=== PATIENT | male | born 1990 | race African-American/Black ===

== ENCOUNTER 2016-03-28 12:55 | Emergency (ER) | payer SELFPAY ==
--- NOTE | 2016-03-28 13:39 | ER Document Report ---
ED Medical Screen (RME) - General Stated Complaint: DISCHARGE Mode of Arrival: Ambulatory Information source: Patient Notes: 25-year-old male presents to the department complaining of penile discharge over the last 2 days. Reports had similar symptoms when he was diagnosed and treated for Gonorrhea approximately one month ago but states has had intercourse since treatment and symptoms have returned. Denies fever or dysuria. TRAVEL OUTSIDE OF THE [place] IN LAST 30 DAYS: No - Related Data Allergies/Adverse Reactions: No Known Allergies Allergy (Verified 06/18/12 19:04) Past Medical History - Social History Frequency of alcohol use: None Drug Abuse: None Family history: Reviewed & Not Pertinent Renal/ Medical History: Denies: Hx Peritoneal Dialysis - Immunizations Immunizations up to date: Yes Hx Diphtheria, Pertussis, Tetanus Vaccination: No - unk Physical Exam - Vital signs Vitals: Temp Pulse Resp BP Pulse Ox 97.9 F 51 L 16 112/58 L 97 03/28/16 13:16 03/28/16 13:16 03/28/16 13:16 03/28/16 13:16 03/28/16 13:16 - General General appearance: Appears well, Alert In distress: None Course - Vital Signs Vital signs: Temp Pulse Resp BP Pulse Ox 97.9 F 51 L 16 112/58 L 97 03/28/16 13:16 03/28/16 13:16 03/28/16 13:16 03/28/16 13:16 03/28/16 13:16
--- NOTE | 2016-03-28 14:37 | ER Document Report ---
ED GI/ - General Chief Complaint: Penile Discharge Stated Complaint: DISCHARGE Mode of Arrival: Ambulatory Information source: Patient TRAVEL OUTSIDE OF THE [place] IN LAST 30 DAYS: No - HPI Patient complains to provider of: Other - URETHRAL DISCHARGE Onset: Yesterday Timing/Duration: Gradual Quality of pain: No pain Context: Other - RECENT STD, TREATED Sexual history: Active, Condoms. denies: Unprotected intercourse - NONE SINCE TREATMENT FOR STD Associated symptoms: None. denies: Dysuria Exacerbated by: Denies Relieved by: Denies Similar symptoms previously: Yes - 2 WKS AGO Recently seen / treated by doctor: Yes - BACILIO Langston, 2 WKS AGO - Related Data Allergies/Adverse Reactions: No Known Allergies Allergy (Verified 06/18/12 19:04) Past Medical History - General Information source: Patient - Social History Smoking Status: Current Every Day Smoker Smoking Education Provided: No Frequency of alcohol use: None Drug Abuse: None Family History: Reviewed & Not Pertinent Patient has suicidal ideation: No Patient has homicidal ideation: No - Past Medical History Cardiac Medical History: Reports: None Pulmonary Medical History: Reports: None EENT Medical History: Reports: None Neurological Medical History: Reports: None Endocrine Medical History: Reports: None. Denies: Hx Diabetes Mellitus Type 1, Hx Diabetes Mellitus Type 2 Renal/ Medical History: Denies: Hx Peritoneal Dialysis Malignancy Medical History: Reports None GI Medical History: Reports: None Musculoskeltal Medical History: Reports None Psychiatric Medical History: Reports: None Surgical Hx: Negative - Immunizations Immunizations up to date: Yes Hx Diphtheria, Pertussis, Tetanus Vaccination: No - unk Review of Systems - Review of Systems Constitutional: No symptoms reported. denies: Fever EENT: No symptoms reported Cardiovascular: No symptoms reported Respiratory: No symptoms reported Gastrointestinal: No symptoms reported Genitourinary: See HPI, Discharge. denies: Burning, Dysuria Male Genitourinary: See HPI, Penile discharge, Other - DENIES SKIN LESIONS Musculoskeletal: No symptoms reported Skin: No symptoms reported Neurological/Psychological: No symptoms reported Physical Exam - Vital signs Vitals: Temp Pulse Resp BP Pulse Ox 97.9 F 51 L 16 112/58 L 97 03/28/16 13:16 03/28/16 13:16 03/28/16 13:16 03/28/16 13:16 03/28/16 13:16 Interpretation: Normal - General General appearance: Appears well, Alert In distress: None - HEENT Head: Normocephalic Eyes: Normal Mouth/Lips: Normal Mucous membranes: Normal - Respiratory Respiratory status: No respiratory distress - Cardiovascular Rhythm: Regular - Extremities General upper extremity: Normal inspection General lower extremity: Normal inspection - Neurological Neuro grossly intact: Yes Cognition: Normal Orientation: AAOx4 - Psychological Associated symptoms: Normal affect, Normal mood - Skin Skin Temperature: Warm Skin Moisture: Dry Skin Color: Normal Skin Turgor: Elastic Course - Vital Signs Vital signs: Temp Pulse Resp BP Pulse Ox 97.9 F 51 L 16 112/58 L 97 03/28/16 13:16 03/28/16 13:16 03/28/16 13:16 03/28/16 13:16 03/28/16 13:16 - Laboratory Laboratory results interpreted by me: 03/28/16 13:39 Chlamydia DNA (PCR) DETECTED H N.gonorrhoeae DNA (PCR) DETECTED H Discharge - Discharge Clinical Impression: GC infection of lower tract, acute, Chlamydia infection Condition: Stable Disposition: HOME, SELF-CARE Instructions: Gonorrhea ([facility]), Chlamydia ([facility]), Azithromycin ([facility]), Rocephin ( [facility]) Additional Instructions: DRINK PLENTY OF FLUIDS. AVOID UNPROTECTED SEX WITH ANYONE FOR NEXT 7-10 DAYS. ADVISE RECENT SEXUAL PARTNERS TO GET EVALUATED AND TREATED FOR SEXUALLY TRANSMITTED DISEASE. ALWAYS WEAR PROTECTION (SUCH A CONDOM) DURING SEX WITH ANYONE WHO MIGHT POSSIBLY HAVE AN STD INFECTION.
[2016-03-28 15:27] LABS: CHLAM PCR DETECTED (NOT DETECT)
[2016-03-28] MEDS ORDERED: CEFTRIAXONE INJ 250 MG VIAL IM ONE (15:43)
[2016-03-28] MEDS ORDERED: AZITHROMYCIN 250 MG TABLET PO ONE (15:43)
[2016-03-28] MEDS ORDERED: LIDOCAINE 1% INJ-PF (10 MG/ML) 30 ML SDV INJ ONE (15:43)
[2016-03-28 16:04] VITALS: BP 122/75
== END 2016-03-28 16:04 | disposition home or self-care (01) ==
LOC: ER 12:55
DX: A54.00 Gonococcal infection of lower genitourinary tract, unspecified (principal); A74.9 Chlamydial infection, unspecified; F17.200 Nicotine dependence, unspecified, uncomplicated
CPT/HCPCS: 99283; 96372; 87491; 87591; J3490; J0696

== ENCOUNTER 2016-05-17 14:19 | Emergency (ER) | payer MEDICAID ==
--- NOTE | 2016-05-17 14:29 | ER Document Report ---
ED Medical Screen (RME) - General Chief Complaint: STD Exposure Stated Complaint: STD CHECK Mode of Arrival: Ambulatory Information source: Patient Notes: pt presents for possible STD, denies symptoms. Reports he just wants to be checked out. Reports he has been having unprotected sex. Reports history of STD. I have greeted and performed a rapid initial assessment of this patient. A comprehensive ED assessment and evaluation of the patient, analysis of test results and completion of the medical decision making process will be conducted by additional ED providers. TRAVEL OUTSIDE OF THE [place] IN LAST 30 DAYS: No - Related Data Allergies/Adverse Reactions: No Known Allergies Allergy (Verified 05/17/16 14:20) Past Medical History - Social History Chew tobacco use (# tins/day): No Frequency of alcohol use: Occasional Drug Abuse: None Family history: Reviewed & Not Pertinent Endocrine Medical History: Denies: Hx Diabetes Mellitus Type 1, Hx Diabetes Mellitus Type 2 Renal/ Medical History: Denies: Hx Peritoneal Dialysis - Immunizations Immunizations up to date: Yes Hx Diphtheria, Pertussis, Tetanus Vaccination: No - unk Physical Exam - Vital signs Vitals: Temp Pulse Resp BP Pulse Ox 98.2 F 85 20 143/71 H 98 05/17/16 14:21 05/17/16 14:21 05/17/16 14:21 05/17/16 14:21 05/17/16 14:21 Course - Vital Signs Vital signs: Temp Pulse Resp BP Pulse Ox 98.2 F 85 20 143/71 H 98 05/17/16 14:21 05/17/16 14:21 05/17/16 14:21 05/17/16 14:21 05/17/16 14:21
[2016-05-17] MEDS ORDERED: LIDOCAINE 1% INJ-PF (10 MG/ML) 30 ML SDV INFIL ONE (14:42)
[2016-05-17] MEDS ORDERED: METRONIDAZOLE 500 MG TABLET PO ONE (14:42)
[2016-05-17] MEDS ORDERED: CEFTRIAXONE INJ 250 MG VIAL IM ONE (14:42)
[2016-05-17] MEDS ORDERED: AZITHROMYCIN 1 GM SUSP PACKET PO ONE (14:42)
[2016-05-17] MEDS ORDERED: ONDANSETRON ODT 4 MG TAB (6 TAB/DSPK) PO PRN (14:43)
--- NOTE | 2016-05-17 14:46 | ER Document Report ---
ED General - General Chief Complaint: STD Exposure Stated Complaint: STD CHECK Mode of Arrival: Ambulatory TRAVEL OUTSIDE OF THE [place] IN LAST 30 DAYS: No - HPI Patient complains to provider of: concern for STDs Notes: Patient coming in after his girlfriend was seen earlier here in the ER and was diagnosed with gonorrhea and Chlamydia patient has been having unprotected sex and is concerned about STDs. Patient has are to provide urine. Denies fevers chills nausea vomiting sores on his penis or penile discharge. Patient denies dysuria. - Related Data Allergies/Adverse Reactions: No Known Allergies Allergy (Verified 05/17/16 14:20) Past Medical History - General Information source: Patient - Social History Smoking Status: Current Every Day Smoker Chew tobacco use (# tins/day): No Frequency of alcohol use: Occasional Drug Abuse: None Family History: Reviewed & Not Pertinent Patient has suicidal ideation: No Patient has homicidal ideation: No Endocrine Medical History: Denies: Hx Diabetes Mellitus Type 1, Hx Diabetes Mellitus Type 2 Renal/ Medical History: Denies: Hx Peritoneal Dialysis - Immunizations Immunizations up to date: Yes Hx Diphtheria, Pertussis, Tetanus Vaccination: No - unk Review of Systems - Review of Systems Constitutional: No symptoms reported EENT: No symptoms reported Cardiovascular: No symptoms reported Respiratory: No symptoms reported Gastrointestinal: No symptoms reported Genitourinary: Other - Concern for STDs Male Genitourinary: No symptoms reported Musculoskeletal: No symptoms reported Skin: No symptoms reported Hematologic/Lymphatic: No symptoms reported Neurological/Psychological: No symptoms reported -: Yes All other systems reviewed and negative Physical Exam - Vital signs Vitals: Temp Pulse Resp BP Pulse Ox 98.2 F 85 20 143/71 H 98 05/17/16 14:21 05/17/16 14:21 05/17/16 14:21 05/17/16 14:21 05/17/16 14:21 Interpretation: Normal - General General appearance: Appears well, Alert - HEENT Head: Normocephalic, Atraumatic Eyes: Normal Pupils: PERRL - Respiratory Respiratory status: No respiratory distress Chest status: Nontender Breath sounds: Normal Chest palpation: Normal - Cardiovascular Rhythm: Regular Heart sounds: Normal auscultation Murmur: No - Abdominal Inspection: Normal Distension: No distension Bowel sounds: Normal Tenderness: Nontender Organomegaly: No organomegaly - Genitourinary Tenderness: Nontender Cremasteric reflex: Normal Scrotum: Normal Notes: No lesions - Back Back: Normal, Nontender - Extremities General upper extremity: Normal inspection, Nontender, Normal color, Normal ROM , Normal temperature General lower extremity: Normal inspection, Nontender, Normal color, Normal ROM , Normal temperature, Normal weight bearing. No: Maurisio's sign - Neurological Neuro grossly intact: Yes Cognition: Normal Orientation: AAOx4 [place] Coma Scale Eye Opening: Spontaneous [place] Coma Scale Verbal: Oriented [place] Coma Scale Motor: Obeys Commands [place] Coma Scale Total: 15 Speech: Normal Motor strength normal: LUE, RUE, LLE, RLE Sensory: Normal - Psychological Associated symptoms: Normal affect, Normal mood - Skin Skin Temperature: Warm Skin Moisture: Dry Skin Color: Normal Course - Re-evaluation Re-evalutation: 05/17/16 19:11 Patient ventilation they did not want to be treated for STDs in one week for results To the patient more likely as that his partner has gonorrhea and Chlamydia he would also had gonorrhea and Chlamydia and then patient did agree for treatment patient was discharged home educated about the use of condoms - Vital Signs Vital signs: Temp Pulse Resp BP Pulse Ox 98.0 F 60 16 140/70 H 100 05/17/16 15:13 05/17/16 15:13 05/17/16 15:13 05/17/16 15:13 05/17/16 15:13 - Laboratory Laboratory results interpreted by me: 05/17/16 14:30 Chlamydia DNA (PCR) DETECTED H N.gonorrhoeae DNA (PCR) DETECTED H Discharge - Discharge Clinical Impression: gonorrhea and Chlamydia infection Condition: Good Disposition: HOME, SELF-CARE Additional Instructions: You were treated today for exposure for gonorrhea and Chlamydia and trichomonas. Please take medications as directed. Sometimes the antibiotics can cause nausea we will give you Zofran for home for the next few days. No sexual intercourse for the next 2 weeks. Every time that you have sex you need to wear a condom to prevent sexually transmitted diseases (such as gonorrhea chlamydia) and
[2016-05-17 14:54] LABS: APPEARANCE,URINE CLEAR; BILIRUBIN,URINE NEGATIVE (NEGATIVE); GLUCOSE, URINE NEGATIVE (NEGATIVE); KETONES,URINE NEGATIVE (NEGATIVE); LEUKOCYTE ESTERASE,URINE NEGATIVE (NEGATIVE); NITRITE,URINE NEGATIVE (NEGATIVE); PROTEIN,URINE NEGATIVE (NEGATIVE); URINE SPECIFIC GRAVITY 1.013; UROBILINOGEN,URINE NEGATIVE mg/dL (<2.0)
[2016-05-17 15:17] VITALS: BP 140/70
[2016-05-17 16:15] LABS: CHLAM PCR DETECTED (NOT DETECT)
== END 2016-05-17 15:17 | disposition home or self-care (01) ==
LOC: ER 14:19
DX: A54.9 Gonococcal infection, unspecified (principal); A74.9 Chlamydial infection, unspecified; F17.200 Nicotine dependence, unspecified, uncomplicated
CPT/HCPCS: 99283; 81001; 87491; 87591; J3490 ×2; Q0144; J0696

== ENCOUNTER 2016-06-29 18:58 | Emergency (ER) | payer OTHER, MEDICAID ==
--- NOTE | 2016-06-29 20:05 | ER Document Report ---
ED Hand/Wrist Injury - General Chief Complaint: Finger Injury Stated Complaint: FINGER INJURY Time seen by provider: 19:30 Mode of Arrival: Ambulatory Information source: Patient Notes: 26-year-old male presents to ED for right fifth finger injury. He states he was at work when he was moving a dresser and it started to fall he caught it around 2:30 and then his finger completely backwards. He states it is hurt ever since then.. TRAVEL OUTSIDE OF THE [place] IN LAST 30 DAYS: No - HPI Injury to: Small finger Onset: This afternoon Where: Work Timing: Still present Severity: Moderate Pain Level: 4 Context: Other - Injured finger when furniture dropped and he tried to catch it - Related Data Allergies/Adverse Reactions: No Known Allergies Allergy (Verified 06/29/16 19:04) Past Medical History - General Information source: Patient - Social History Smoking Status: Current Some Day Smoker Cigarette use (# per day): Yes - a pack per week Smoking Education Provided: Yes Frequency of alcohol use: Occasional Drug Abuse: None Occupation: moving company Lives with: Grandparent(s) Family History: Arthritis, CVA, DM, Malignancy Patient has suicidal ideation: No Patient has homicidal ideation: No - Past Medical History Cardiac Medical History: Reports: Hx Hypercholesterolemia Pulmonary Medical History: Reports: None EENT Medical History: Reports: None Neurological Medical History: Reports: None Endocrine Medical History: Reports: None Renal/ Medical History: Reports: None Malignancy Medical History: Reports None GI Medical History: Reports: None Musculoskeltal Medical History: Reports Hx Musculoskeletal Trauma Skin Medical History: Reports None Psychiatric Medical History: Reports: Hx Attention Deficit Hyperactivity Disorder, Hx Bipolar Disorder Traumatic Medical History: Reports: Hx Fractures - Today fracture of right fifth finger Infectious Medical History: Reports: None Surgical Hx: Negative Past Surgical History: Reports: None - Immunizations Immunizations up to date: Yes Hx Diphtheria, Pertussis, Tetanus Vaccination: No - unk Review of Systems - Review of Systems Constitutional: No symptoms reported EENT: No symptoms reported Cardiovascular: No symptoms reported Respiratory: No symptoms reported Gastrointestinal: No symptoms reported Genitourinary: No symptoms reported Male Genitourinary: No symptoms reported Musculoskeletal: Other - Right fifth finger and hand pain and swelling Skin: No symptoms reported Hematologic/Lymphatic: No symptoms reported Neurological/Psychological: No symptoms reported Physical Exam - Vital signs Vitals: Temp Pulse Resp BP Pulse Ox 98.4 F 71 16 134/75 H 98 06/29/16 19:07 06/29/16 19:07 06/29/16 19:07 06/29/16 19:07 06/29/16 19:07 Interpretation: Normal - General General appearance: Appears well, Alert - HEENT Head: Normocephalic, Atraumatic Eyes: Normal Pupils: PERRL - Respiratory Respiratory status: No respiratory distress Chest status: Nontender Breath sounds: Normal Chest palpation: Normal - Cardiovascular Rhythm: Regular Heart sounds: Normal auscultation Murmur: No - Abdominal Inspection: Normal Distension: No distension Bowel sounds: Normal Tenderness: Nontender Organomegaly: No organomegaly - Back Back: Normal, Nontender - Extremities General upper extremity: Normal color, Normal temperature General lower extremity: Normal inspection, Nontender, Normal color, Normal ROM , Normal temperature, Normal weight bearing. No: Maurisio's sign Hand: Tender - Right fifth finger swollen tender refuses to move., No evidence of human bite, No evidence of FB, Swelling. No: Abrasion, Deformity, Dislocation, Ecchymosis, Laceration, Nail injury, Tendon deficit - Neurological Neuro grossly intact: Yes Cognition: Normal Orientation: AAOx4 Bettye Coma Scale Eye Opening: Spontaneous [place] Coma Scale Verbal: Oriented [place] Coma Scale Motor: Obeys Commands [place] Coma Scale Total: 15 Speech: Normal Motor strength normal: LUE, RUE, LLE, RLE Sensory: Normal - Psychological Associated symptoms: Normal affect, Normal mood - Skin Skin Temperature: Warm Skin Moisture: Dry Skin Color: Normal Course - Re-evaluation Re-evalutation: 06/29/16 21:[address] guillaume for splint suggestions for a fractured proximal phalanx of the right fifth finger. He suggested a ulnar splint going to the wrist to protect the finger. This was ordered and placed on patient patient given a no code dispense pack with a Zofran dispense pack for tonight for pain and a prescription for Percocet because he states that [place] sometimes makes him sick. Patient instructed to follow-up with orthopedics tomorrow if possible. Patient instructed to keep the hand elevated above the heart and use ice on the hand - Vital Signs Vital signs: Temp Pulse Resp BP Pulse Ox 98.4 F 71 16 134/75 H 98 06/29/16 19:07 06/29/16 19:07 06/29/16 19:07 06/29/16 19:07 06/29/16 19:07 - Diagnostic Test Radiology reviewed: Image reviewed, Reports reviewed Procedures - Immobilization Right Hand Time completed: 21:37 Pre-Proc Neuro Vasc Exam: Normal Immobilizer type: Ulnar - Right pull her to include this finger to the wrist Performed by: PCT Post-Proc Neuro Vasc Exam: Normal Alignment checked and good: No - did not re-x-ray the finger as we did not reduce the fracture splint Discharge - Discharge Clinical Impression: Finger fracture, right Condition: Stable Disposition: HOME, SELF-CARE Additional Instructions: Fracture You have a fracture. The typical broken bone requires only protection and sufficient time for healing. "Setting" is necessary only if the bones are crooked or out of position. The physician will re-assess you periodically to make certain that the bone heals without complications. It's important that you follow the instructions given you. The initial treatment is immobilization, elevation of the injury, and cold packs. Not all fractures require a cast. Depending on the location and type of fracture, immobilization may consist of a splint, cast, sling, bulky dressing , or simply rest. The length of time required for healing depends on the location and type of fracture, and on the age of the patient. The treatment plan the physician has outlined for you is customized to your fracture and health condition. Call the doctor or return at once if pain becomes severe, or if severe swelling or numbness develop. SPLINT PRECAUTIONS: A splint has been placed. This will protect the area while healing begins. Your problem does NOT normally require a cast. It MUST, however, be held still! Keep the splint on ALL THE TIME until instructed to remove it by the doctor. As you begin to use the area, be careful. You shouldn't do anything which causes discomfort -- you may disturb the injury even with the splint in place. After the initial period of rest and elevation, if splint does not prevent pain when you move, come back. You may require placement of a different splint , or a cast. If there is unexpected severe pain, or numbness, discoloration, or swelling beyond the splint, you should return at once. If you feel that the splint has broken or become loose, come back. ICE & ELEVATION: Apply ice packs frequently against the painful area. Many different schedules are recommended, such as "20 minutes on, 20 minutes off" or "one hour ice, two hours rest." If you need to work, you may need to go longer between ice treatments. You should plan to have the area ice packed AT LEAST one- fourth of the time. The ice should be applied over the wrap, tape, or splint, or over a layer of cloth -- not directly against the skin. Some ice bags have a built-in cloth and can be put directly on the skin. Your injured part should be elevated as much as possible over the next 48 hours. Try to keep the injury above the level of the heart. Avoid use of the injured area. Elevation and rest will decrease the swelling. USE OF [id number] IBUPROFEN: Ibuprofen (Advil, Nuprin, Medipren, Motrin IB) is a medication for fever and pain control. In addition, it has anti- inflammatory effects which may be beneficial, especially in the treatment of injuries. It's best to take ibuprofen with food. Persons with ulcer disease or allergy to aspirin should notify their physician of this before taking ibuprofen. Ibuprofen can be given every four to six hours, for a total of four doses daily. Age Pain or fever dose Antiinflammatory dose 6-8 yr 200 mg (1 tab) 200 mg (1 tab) 9-11 yr 200 mg (1 tab) 200-400 mg (1-2 tab) 11-14 yr 200-400 mg (1-2 tab) 400 mg (2 tab) 15-adult 400 mg (2 tab) 600 mg (3 tab) ORAL NARCOTIC MEDICATION: You have been given a prescription for pain control. This medication is a narcotic. It's best taken with food, as nausea can result if taken on an empty stomach. Don't operate machinery or drive within six hours of taking this medication. Do not combine this medicine with alcohol, or with any medication which can cause sedation (such as cold tablets or sleeping pills) unless you get permission from the physician. Narcotics tend to cause constipation. If possible, drink plenty of fluids and eat a diet high in fiber and fruits. Please be aware that prescription narcotics also have the potential for abuse. People become addicted to these medications because of the general sense of wellbeing that they induce. This feeling along with a significant reduction in tension, anxiety, and aggression provides a stimulating seductive quality to these drugs. Once your pain is under control, we encourage you to discard your unused narcotics. FOLLOW-UP CARE: If you have been referred to a physician for follow-up care, call the physician s office for an appointment as you were instructed or within the next two days. If you experience worsening or a significant change in your symptoms, notify the physician immediately or return to the Emergency Department at any time for re-evaluation. Call Dr. Marshall in the morning and schedule follow-up visit for your right proximal phalanx fifth finger fracture displaced. Prescriptions: Oxycodone HCl/Acetaminophen [Percocet 5-325 mg Tablet] 1 tab PO Q6HP PRN #10 tablet PRN Reason: Forms: Elevated Blood Pressure, Return to Work Referrals: BIANCA BROWN MD [Primary Care Provider] - Follow up as needed ELLY MARSHALL DO [ACTIVE STAFF] - Follow up tomorrow
[2016-06-29] MEDS ORDERED: HYDROCODONE/ACETAMINOPHEN 5-325 MG 6 TAB/DSPK PO PRN (20:56)
[2016-06-29] MEDS ORDERED: ONDANSETRON 4 MG TAB.RAPDIS PO ONE (21:22)
[2016-06-29] MEDS ORDERED: ONDANSETRON ODT 4 MG TAB (6 TAB/DSPK) PO PRN (21:23)
[2016-06-29 21:42] VITALS: BP 121/78
== END 2016-06-29 21:37 | disposition home or self-care (01) ==
LOC: ER 18:58
PROC: 2W3CX1Z Immobilization of Right Lower Arm using Splint (ICD-10-PCS; principal; 2016-06-29)
DX: S62.616A Displaced fracture of proximal phalanx of right little finger, initial encounter for closed fracture (principal); X50.0XXA Overexertion from strenuous movement or load, initial encounter; Y93.89 Activity, other specified; Y99.0 Civilian activity done for income or pay; F17.210 Nicotine dependence, cigarettes, uncomplicated
CPT/HCPCS: 99283; 73130; 29125; S0119

== ENCOUNTER 2017-03-27 20:44 | Emergency (ER) | payer BC, MEDICAID ==
[2017-03-27 21:08] VITALS: BP 148/75
--- NOTE | 2017-03-27 22:16 | RADIOLOGY REPORT (SQ) ---
EXAM DESCRIPTION: KNEE LEFT 3 VIEWS COMPLETED DATE/TIME: 03/27/2017 9:55 pm REASON FOR STUDY: swelling, pain COMPARISON: None. NUMBER OF VIEWS: Three views. TECHNIQUE: AP, lateral, and sunrise patella radiographic images acquired of the left knee. LIMITATIONS: None. FINDINGS: MINERALIZATION: Normal. BONES: No acute fracture or dislocation. No worrisome bone lesions. JOINT: Small suprapatellar knee joint effusion SOFT TISSUES: There is blurring of the soft tissue planes along the quadriceps muscle and quadriceps tendon attachment to the patella. There may be injury at the musculotendinous junction. OTHER: No other significant finding. IMPRESSION: No acute fracture. Loss of discrete soft tissue planes within the distal left thigh on lateral view. There may be injur y at the musculotendinous junction of the quadriceps, or the quadriceps attachment to the patella. TECHNICAL DOCUMENTATION: JOB ID: [id number] [employer])- All Rights Reserved
[2017-03-27] MEDS ORDERED: IBUPROFEN 600 MG TABLET PO ONE (22:24)
--- NOTE | 2017-03-27 22:29 | ER Document Report ---
ED Extremity Problem, Lower - General Chief Complaint: Knee Pain Stated Complaint: PAIN IN KNEE Time Seen by Provider: 03/27/17 22:18 Mode of Arrival: Ambulatory Information source: Patient TRAVEL OUTSIDE OF THE [place] IN LAST 30 DAYS: No - HPI Patient complains to provider of: Pain, Swelling Location: Knee Occurred: Yesterday Severity: Moderate Exacerbated by: Movement, Walking Relieved by: Ice, Rest Notes: Patient arrives with complaints of left knee pain. He states this is happened to him a few times in the past. He denies any specific injury. He states that when he works a lot his knee seems to swell up. He states that he worked a lot yesterday and then played basketball when he got home he noticed pain to the medial aspect of the left knee. Again he denies any specific injury or trauma. He denies any fevers. He denies any redness. He denies any numbness, tingling, weakness. He denies any nausea, vomiting, diarrhea. He denies any chest pain or shortness of breath. Patient states that this is happened a few times in the past but is never had it evaluated. He denies any other complaints at this time. - Related Data Allergies/Adverse Reactions: No Known Allergies Allergy (Verified 06/29/16 19:04) Past Medical History - Social History Smoking Status: Unknown if Ever Smoked Family History: Arthritis, CVA, DM, Malignancy - Past Medical History Cardiac Medical History: Reports: Hx Hypercholesterolemia Endocrine Medical History: Denies: Hx Diabetes Mellitus Type 1, Hx Diabetes Mellitus Type 2 Renal/ Medical History: Denies: Hx Peritoneal Dialysis Musculoskeltal Medical History: Reports Hx Musculoskeletal Trauma Psychiatric Medical History: Reports: Hx Attention Deficit Hyperactivity Disorder, Hx Bipolar Disorder Traumatic Medical History: Reports: Hx Fractures - Today fracture of right fifth finger - Immunizations Immunizations up to date: Yes Hx Diphtheria, Pertussis, Tetanus Vaccination: No - unk Review of Systems - Review of Systems -: Yes All other systems reviewed and negative Physical Exam - Vital signs Vitals: Temp Pulse Resp BP Pulse Ox 98.7 F 58 L 20 148/75 H 98 03/27/17 21:06 03/27/17 21:06 03/27/17 21:06 03/27/17 21:06 03/27/17 21:06 - Notes Notes: GENERAL: alert, cooperative, nontoxic, no distress. HEAD: normocephalic, atraumatic EYES: conjunctiva pink without discharge, no external redness or swelling. EARS: no external swelling, no external redness NOSE: atraumatic, no external swelling MOUTH/THROAT: mucous membranes moist and pink NECK: soft, supple, full range of motion, no meningismus. CHEST: no distress, lungs clear and equal throughout. No wheezing, rales, rhonchi. CARDIAC: regular rate and rhythm, no murmur, normal capillary refill, normal pulses. BACK: full range of motion, no CVA tenderness. EXTREMITIES: full range of motion of all extremities. No redness. Tenderness to palpation of the medial aspect of the left knee just above the patella. There is some swelling in this area. No redness. No obvious ligament instability. Normal neurovascular exam distally. Compartments are soft. Normal straight leg raise. NEURO: alert and oriented 3, no focal deficits, full range of motion of all extremities. PYSCH: appropriate mood, affect. Patient is cooperative. SKIN: pink, warm, dry, no rash. Course - Re-evaluation Re-evalutation: 03/27/17 22:26 Patient is nontoxic appearing with stable vitals. The patient arrives with complaints of left knee pain since yesterday. He denies any specific injury but states that this has occurred several times in the past. He is noted to have some mild swelling to the left knee with no redness or signs of infection. No fever. X-ray shows no acute osseous abnormality with possible soft tissue injury to the quadriceps tendon. Patient states that the knee feels much better when it is straightened. He will be placed in a knee immobilizer for comfort. [facility] to [facility] with instructions to rest, ice and elevate his knee. Instructed to follow-up with orthopedics at the next available appointment and follow-up sooner for increasing pain, fever, redness, any further concerns. The patient's emergency department workup and current diagnosis were explained to the patient and or family. Follow-up instructions were provided. Medications if prescribed were discussed. Instructions for when to return to the emergency department including specific worrisome symptoms were discussed with the patient and/or family. The patient is noted to have elevated blood pressure during today's emergency department visit. The patient was informed of this finding. The patient was instructed that this may be related to pre-hypertension and requires further evaluation with a primary care provider. The patient has no hypertensive symptoms at this time. - Vital Signs Vital signs: Temp Pulse Resp BP Pulse Ox 98.7 F 58 L 20 148/75 H 98 03/27/17 21:06 03/27/17 21:06 03/27/17 21:06 03/27/17 21:06 03/27/17 21:06 Procedures - Immobilization Left knee Pre-Proc Neuro Vasc Exam: Normal Immobilizer type: Knee immobilizer Performed by: RN Post-Proc Neuro Vasc Exam: Normal Alignment checked and good: Yes Discharge - Discharge Clinical Impression: Effusion, left knee Condition: Stable Disposition: HOME, SELF-CARE Instructions: Ice & Elevation ([facility]), Knee Immobilizing Splint ([facility]), Sprained Knee ([facility]) Additional Instructions: Take medications as prescribed. Wear brace as needed for comfort. Rest, ice, elevate. Follow-up with orthopedics at the next available appointment. Follow- up sooner for increasing pain, fever, redness, numbness, tingling, weakness, any further concerns. Your blood pressure was elevated during today's visit. Have this rechecked with your doctor. Prescriptions: Diclofenac Sodium [Voltaren 50 Mg Tablet.Dr] 50 mg PO BID #20 tablet.dr Forms: Elevated Blood Pressure, Smoking Cessation Education Referrals: LEATHA BOSTON MD [ACTIVE STAFF] - Follow up as needed
[2017-03-27] MEDS ORDERED: ACETAMINOPHEN 325 MG TABLET PO ONE (23:21)
[2017-03-27] MEDS ORDERED: TRAMADOL HCL 50 MG TABLET PO ONE (23:22)
== END 2017-03-27 23:32 | disposition home or self-care (01) ==
LOC: ER 20:44
DX: M25.462 Effusion, left knee (principal); M25.562 Pain in left knee
CPT/HCPCS: 99283; 73562; L1830

== ENCOUNTER 2019-04-28 12:24 | Emergency (ER) | payer SELFPAY ==
[2019-04-28] MEDS ORDERED: AZITHROMYCIN 250 MG TABLET PO ONE (12:46)
[2019-04-28] MEDS ORDERED: METRONIDAZOLE 500 MG TABLET PO ONE (12:46)
[2019-04-28] MEDS ORDERED: CEFTRIAXONE INJ 250 MG VIAL IM ONE (12:47)
[2019-04-28] MEDS ORDERED: LIDOCAINE 1% INJ-PF (10 MG/ML) 30 ML SDV IM ONE (12:47)
--- NOTE | 2019-04-28 12:56 | ER Document Report ---
ED Medical Screen (RME) - General Chief Complaint: STD Exposure Stated Complaint: POSSIBLE STD Time Seen by Provider: 04/28/19 12:28 Mode of Arrival: Ambulatory Information source: Patient Notes: Patient is a 28-year-old male presents the emergency department with request for STD check. Patient reports he has been having abnormal penile drainage. Patient also while in the lobby had a near syncopal episode, he became very faint, diaphoretic and nearly passed out. His blood pressure was low according to the triage PCT. Patient reports the symptoms have not resolved. He does report having history of similar episodes in the past. I have greeted and performed a rapid initial assessment of this patient. A comprehensive ED assessment and evaluation of the patient, analysis of test re sults and completion of the medical decision making process will be conducted by additional ED providers. I have specifically instructed the patient or family members with the patient to immediately return to any nursing staff should anything change in the patient's condition or with their chief complaint. TRAVEL OUTSIDE OF THE [place] IN LAST 30 DAYS: No - Related Data Allergies/Adverse Reactions: No Known Allergies Allergy (Verified 04/28/19 12:37) Past Medical History - Social History Chew tobacco use (# tins/day): No Frequency of alcohol use: None Drug Abuse: None Family history: Reviewed & Not Pertinent - Past Medical History Cardiac Medical History: Reports: Hx Hypercholesterolemia Endocrine Medical History: Denies: Hx Diabetes Mellitus Type 1, Hx Diabetes Mellitus Type 2 Renal/ Medical History: Denies: Hx Peritoneal Dialysis Musculoskeltal Medical History: Reports Hx Musculoskeletal Trauma Psychiatric Medical History: Reports: Hx Attention Deficit Hyperactivity Disorder, Hx Bipolar Disorder Traumatic Medical History: Reports: Hx Fractures - Today fracture of right fifth finger - Immunizations Immunizations up to date: Yes Hx Diphtheria, Pertussis, Tetanus Vaccination: No - unk Physical Exam - Vital signs Vitals: Temp Pulse Resp BP Pulse Ox 98.1 F 90 18 79/32 L 100 04/28/19 12:30 04/28/19 12:30 04/28/19 12:30 04/28/19 12:30 04/28/19 12:30 Course - Vital Signs Vital signs: Temp Pulse Resp BP Pulse Ox 98.1 F 90 18 126/56 H 100 04/28/19 12:30 04/28/19 12:40 04/28/19 12:30 04/28/19 12:40 04/28/19 12:30
[2019-04-28 13:51] LABS: ABSOLUTE EOSINOPHILS # (AUTO) 0.1 10^3/uL (0.0-0.6); ABSOLUTE LYMPHOCYTES (AUTO) 1.7 10^3/uL (0.5-4.7); ABSOLUTE MONOCYTES (AUTO) 0.5 10^3/uL (0.1-1.4); BASOPHILS % (AUTO) 0.2 % (0-2); EOSINOPHILS % (AUTO) 1.1 % (0-6); HEMATOCRIT 44.2 % (37.9-51.0); HEMOGLOBIN 15.3 g/dL (13.5-17.0); LYMPHOCYTES % (AUTO) 27.6 % (13-45); MEAN CORPUSCULAR HEMOGLOBIN 32.1 pg (27.0-33.4); MEAN CORPUSCULAR HGB CONC 34.6 g/dL (32.0-36.0); MEAN CORPUSCULAR VOLUME 93 fl (80-97); MONOCYTES % (AUTO) 7.6 % (3-13); PLATELET COUNT 237 10^3/uL (150-450); RED BLOOD COUNT 4.77 10^6/uL (4.35-5.55); RED CELL DISTRIBUTION WIDTH 13.6 % (11.5-14.0); SEGMENTED NEUTROPHILS % (AUTO) 63.5 % (42-78); TOTAL CELLS COUNTED % (AUTO) 100 %; WHITE BLOOD COUNT 6.2 10^3/uL (4.0-10.5)
[2019-04-28 13:56] LABS: APPEARANCE,URINE SLIGHTLY-CLOUDY; BILIRUBIN,URINE NEGATIVE (NEGATIVE); COLOR,URINE YELLOW; GLUCOSE, URINE NEGATIVE (NEGATIVE); KETONES,URINE NEGATIVE (NEGATIVE); PROTEIN,URINE 30 mg/dL (NEGATIVE); URINE SPECIFIC GRAVITY 1.029; UROBILINOGEN,URINE NEGATIVE mg/dL (<2.0)
[2019-04-28 14:04] LABS: ALBUMIN 4.7 g/dL (3.5-5.0); ALKALINE PHOSPHATASE 62 U/L (38-126); ANION GAP 9 (5-19); ASPARTATE AMINO TRANSFERASE 28 U/L (17-59); BILIRUBIN,DIRECT 0.2 mg/dL (0.0-0.4); BILIRUBIN,TOTAL 0.8 mg/dL (0.2-1.3); BLOOD UREA NITROGEN 10 mg/dL (7-20); CARBON DIOXIDE 32 mmol/L (22-30); CHLORIDE 98 mmol/L (98-107); GLUCOSE 106 mg/dL (75-110); POTASSIUM 4.5 mmol/L (3.6-5.0); TOTAL PROTEIN 8.2 g/dL (6.3-8.2)
--- NOTE | 2019-04-28 14:44 | ER Document Report ---
ED General - General Chief Complaint: STD Exposure Stated Complaint: POSSIBLE STD Time Seen by Provider: 04/28/19 12:28 Primary Care Provider: BIANCA BROWN MD [Primary Care Provider] - Follow up as needed Mode of Arrival: Ambulatory Notes: 28-year-old man presents to the emergency department with a history of being seen for possible STD. He was talking with the provider when he became l ightheaded and started sweating and then fainted. He had a rapid recovery and has no residual symptoms at this time. He denies any medical history and he was treated for STD here at the emergency department. An EKG was performed shows no acute findings. TRAVEL OUTSIDE OF THE [place] IN LAST 30 DAYS: No - Related Data Allergies/Adverse Reactions: No Known Allergies Allergy (Verified 04/28/19 12:37) Past Medical History - General Information source: Patient - Social History Smoking Status: Never Smoker Chew tobacco use (# tins/day): No Frequency of alcohol use: None Drug Abuse: None Family History: Arthritis, CVA, DM, Malignancy Patient has suicidal ideation: No Patient has homicidal ideation: No - Past Medical History Cardiac Medical History: Reports: Hx Hypercholesterolemia Endocrine Medical History: Denies: Hx Diabetes Mellitus Type 1, Hx Diabetes Mellitus Type 2 Renal/ Medical History: Denies: Hx Peritoneal Dialysis Musculoskeletal Medical History: Reports Hx Musculoskeletal Trauma Psychiatric Medical History: Reports: Hx Attention Deficit Hyperactivity Disorder, Hx Bipolar Disorder Traumatic Medical History: Reports: Hx Fractures - Today fracture of right fifth finger - Immunizations Immunizations up to date: Yes Hx Diphtheria, Pertussis, Tetanus Vaccination: No - unk Review of Systems - Review of Systems Notes: Constitutional: Negative for fever. HENT: Negative for sore throat. Eyes: Negative for visual changes. Cardiovascular: Negative for chest pain. Respiratory: Negative for shortness of breath. Gastrointestinal: Negative for abdominal pain, vomiting or diarrhea. Genitourinary: Negative for dysuria. Musculoskeletal: Negative for back pain. Skin: Negative for rash. Neurological: + Syncopal episode, negative for headaches, weakness or numbness. 10 point ROS negative except as marked above and in HPI. Physical Exam - Vital signs Vitals: Temp Pulse Resp BP Pulse Ox 98.1 F 90 18 79/32 L 100 04/28/19 12:30 04/28/19 12:30 04/28/19 12:30 04/28/19 12:30 04/28/19 12:30 - Notes Notes: PHYSICAL EXAMINATION: Physical Exam: General: Well-nourished well-developed 28-year-old male in no acute distress HEENT: NC/AT, pupils equal round and reactive to light, MM moist,nares clear, oropharynx clear, airway patent Neck: supple, no adenopathy, no masses. Good range of motion Lungs: clear, no wheezing, no rales no rhonchi CVS: Regular rate and rhythm no murmur gallop or rub Abdomen: Soft, active, nontender, no masses, no hepatosplenomegaly Ext: No edema, clubbing or cyanosis. Neuro: Alert and responsive, moving all 4 extremities on command, cranial nerves intact, no focal findings Skin: Intact no open lesions, no rash PSYCH: Normal mood, normal affect. Course - Re-evaluation Re-evalutation: 04/28/19 14:41 28-year-old male syncopal episode/fainting. Was apparently talking to females in the provider unit regarding his possible STD he felt uncomfortable and became sweaty and passed out. All his laboratory evaluation and EKG were normal and the patient is feeling fine at this time. He is eating crackers and having a soda. I am discharging him from the emergency department to follow-up with his primary care doctor as needed. He was told to get lunch since he had not eaten breakfast prior to the episode occurring. - Vital Signs Vital signs: Temp Pulse Resp BP Pulse Ox 98.1 F 90 18 126/56 H 100 04/28/19 12:30 04/28/19 12:40 04/28/19 12:30 04/28/19 12:40 04/28/19 12:30 - Laboratory Result Diagrams: 04/28/19 13:00 04/28/19 13:00 Laboratory results interpreted by me: 04/28/19 04/28/19 13:00 13:00 Carbon Dioxide 32 H Urine Protein 30 H Leukocyte Esterase Rfl TRACE H Urine Ascorbic Acid 40 H Discharge - Discharge Clinical Impression: Fainting spell, STD exposure Condition: Good Disposition: HOME, SELF-CARE Instructions: Fainting ([facility]) Additional Instructions: You are diagnosed with a fainting episode in the emergency department. Please eat lunch and drink plenty of fluids you may follow-up with your primary care doctor as needed if you do not have a primary care doctor you may go to the [facility] if needed. If the symptoms continue you may return to the emergency department for further evaluation and treatment. With regards to STD, please contact your sexual partner with regards to the need for treatment. Referrals: BIANCA BROWN MD [Primary Care Provider] - Follow up as needed
[2019-04-28 15:21] VITALS: BP 125/69
--- NOTE | 2019-04-28 22:00 | EKG REPORT ---
SEVERITY:- ABNORMAL ECG - SINUS RHYTHM CONSIDER LEFT VENTRICULAR HYPERTROPHY ST ELEVATION SUGGESTS PERICARDITIS : Confirmed by: Viola You 28-Apr-2019 21:59:54
== END 2019-04-28 15:19 | disposition home or self-care (01) ==
LOC: ER 12:24
DX: Z20.2 Contact with and (suspected) exposure to infections with a predominantly sexual mode of transmission (principal); R55 Syncope and collapse; R61 Generalized hyperhidrosis
CPT/HCPCS: 93005; 99284; 96372; 36415; 87086; 85025; 80053; 81001; 93010; J3490; J0696; 87088

== ENCOUNTER 2019-05-06 18:22 | Emergency (ER) | payer SELFPAY ==
[2019-05-06 19:08] LABS: APPEARANCE,URINE SLIGHTLY-CLOUDY; BILIRUBIN,URINE NEGATIVE (NEGATIVE); COLOR,URINE YELLOW; GLUCOSE, URINE NEGATIVE (NEGATIVE); KETONES,URINE NEGATIVE (NEGATIVE); PROTEIN,URINE NEGATIVE (NEGATIVE); URINE SPECIFIC GRAVITY 1.027; UROBILINOGEN,URINE NEGATIVE mg/dL (<2.0)
[2019-05-06 19:16] VITALS: BP 134/71
[2019-05-06] MEDS ORDERED: FLUCONAZOLE 100 MG TABLET PO ONE (19:25)
--- NOTE | 2019-05-06 19:27 | ER Document Report ---
HPI - HPI Time Seen by Provider: 05/06/19 19:19 Context: Patient is a 28-year-old male who presents to the emergency department with a chief complaint of dysuria. Patient states that he was seen here on April 28 and was treated for STDs. According to his record, he was treated with Flagyl, Rocephin, and azithromycin. His urine culture came back positive for gonorrhea, which he was treated for. Denies any abdominal pain. - ROS Systems Reviewed and Negative: Yes All other systems reviewed and negative - CONSTITUTIONAL Constitutional: DENIES: Fever - GASTROINTESTINAL Gastrointestinal: DENIES: Abdominal Pain, Nausea, Patient vomiting, Diarrhea - URINARY Urinary: REPORTS: Dysuria. DENIES: Urgency, Frequency - DERM Skin Color: Normal Skin Problems: None Past Medical History - General Information source: Patient - Social History Smoking Status: Unknown if Ever Smoked Family History: Arthritis, CVA, DM, Malignancy - Past Medical History Cardiac Medical History: Reports: Hx Hypercholesterolemia Endocrine Medical History: Denies: Hx Diabetes Mellitus Type 1, Hx Diabetes Mellitus Type 2 Renal/ Medical History: Denies: Hx Peritoneal Dialysis Musculoskeletal Medical History: Reports Hx Musculoskeletal Trauma Psychiatric Medical History: Reports: Hx Attention Deficit Hyperactivity Disorder, Hx Bipolar Disorder Traumatic Medical History: Reports: Hx Fractures - Today fracture of right fifth finger - Immunizations Immunizations up to date: Yes Hx Diphtheria, Pertussis, Tetanus Vaccination: No - unk Vertical Provider Document - CONSTITUTIONAL Agree With Documented VS: Yes Exam Limitations: No Limitations General Appearance: No Apparent Distress - INFECTION CONTROL TRAVEL OUTSIDE OF THE [place] IN LAST 30 DAYS: No - HEENT HEENT: Atraumatic, Normocephalic, PERRLA - RESPIRATORY Respiratory: No Respiratory Distress - CARDIOVASCULAR Cardiovascular: Regular Rate, Regular Rhythm Pulses: Normal: Radial - GI/ABDOMEN Gastrointestinal: Abdomen Soft, Abdomen Non-Tender - REPRODUCTIVE Notes: deferred per patient. - MUSCULOSKELETAL/EXTREMETIES Musculoskeletal/Extremeties: FROM - NEURO Level of Consciousness: Awake, Alert, Appropriate Motor/Sensory: No Motor Deficit, No Sensory Deficit - DERM Integumentary: Warm, Dry, No Rash Course - Re-evaluation Re-evalutation: 05/06/19 Patient has yeast shown in his urine. Urine sent for culture. Patient will be treated with Diflucan here in the emergency department and he will be sent home with another dose of Diflucan. He most likely got this yeast infection from being treated with antibiotics for his STD exposure. I advised the patient to not have sex with anyone without being in a serious relationship. He will follow-up with his primary care provider. He is in agreement with this plan. Follow-up precautions were given. Verbal discharge instructions were given to the patient. They verbalized understanding. They are stable for discharge. - Vital Signs Vital signs: Temp Pulse Resp BP Pulse Ox 99.4 F 87 16 134/71 H 100 05/06/19 19:14 05/06/19 19:14 05/06/19 19:14 05/06/19 19:14 05/06/19 19:14 - Laboratory Laboratory results interpreted by me: 05/06/19 18:20 Urine Ascorbic Acid 40 H Discharge - Discharge Clinical Impression: Candidiasis, Dysuria Condition: Stable Disposition: HOME, SELF-CARE Additional Instructions: You are seen today in the emergency department for burning when you urinate. You have a yeast infection. You received a dose of Diflucan here in the emergency department. You will take another dose in 3 days. Please follow-up with your primary care provider. Please do not have sex with anyone or touch anyone's private parts unless you are in a serious relationship with them. If you decide to have sex, please wear a condom. Prescriptions: Fluconazole [Diflucan] 200 mg PO ONCE PRN #2 tablet PRN Reason: Referrals: BIANCA BROWN MD [Primary Care Provider] - Follow up in 3-5 days
== END 2019-05-06 19:39 | disposition home or self-care (01) ==
LOC: ER 18:22
DX: B37.9 Candidiasis, unspecified (principal); R30.0 Dysuria
CPT/HCPCS: 81001; 87086; 99283